=== PATIENT | female | born 1950 | race Caucasian/White ===

== ENCOUNTER 2024-03-20 16:21 | Outpatient (REF) | payer MEDICARE, SELFPAY ==
[2024-03-20 21:15] LABS: Abs Immature Grans 0.02 10^3/uL (0.0-0.06); Absolute Basophil Count 0.04 10^3/uL (0.0-0.2); Absolute Eosinophil Count 0.09 10^3/uL (0.0-0.7); Absolute Lymphocyte Count 1.68 10^3/uL (1.2-3.4); Absolute Monocyte Count 0.47 10^3/uL (0.1-0.8); Absolute Neutrophil Count 4.48 10^3/uL (1.2-6.7); Basophils % 0.6 %; Eosinophils % 1.3 %; HCT 44.3 % (36.0-46.0); HGB 14.8 g/dL (11.2-15.7); Immature Grans % 0.3 %; Lymphocytes % 24.8 %; MCHC 33.4 % (32.0-36.0); MCV 90 fL (80-95); MPV 9.5 fL (8.0-11.0); Monocytes % 6.9 %; Neutrophils % 66.1 %; Platelet Count 319 10^3/uL (130-400); RBC 4.93 10^6/uL (3.93-5.22); RDW 12.6 % (11.7-14.6); RDW-SD 41.3 fL; WBC 6.78 10^3/uL (4.4-10.8)
[2024-03-20 21:43] LABS: ALT 21 U/L (14-59); AST 17 U/L (15-37); Albumin 3.7 g/dL (3.4-5.0); Alkaline Phosphatase 95 U/L (46-116); Anion Gap 6.5 mmol/L (3-11); BUN 13 mg/dL (7-18); Bilirubin, Total 0.58 mg/dL (0.2-1.0); CO2 31.5 mmol/L (21.0-32.0); CREATININE 0.8 mg/dL (0.55-1.02); Calcium 9.1 mg/dL (8.5-10.1); Chloride 107 mmol/L (98-107); Estimated GFR 78.72 (mL/min/1.73m2); Glucose 95 mg/dL (74-106); Potassium 4.3 mmol/L (3.5-5.1); Sodium 145 mmol/L (136-145); Total Protein 7.2 g/dL (6.4-8.2)
[2024-03-23 14:54] LABS: ANA Interpretation Negative (Negative)
== END 2024-03-20 16:22 | disposition home or self-care (01) ==
LOC: LBN 16:21
PROVIDERS: Visit Provider Physician Assistant Medical
DX: L85.3 Xerosis cutis (principal)
CPT/HCPCS: 80053; 85025; 86038

== ENCOUNTER 2024-04-15 15:18 | Outpatient (REF) | payer MEDICARE, SELFPAY ==
[2024-04-16 20:01] LABS: HBs Antibody, Quant <3.1 mIU/mL (See Note); Hepatitis B Surface Ab Negative (See Note)
[2024-04-16 20:08] LABS: Hepatitis B Surface Ag Negative (Negative)
[2024-04-16 20:43] LABS: Hep B Core Antibody Negative (Negative)
[2024-04-16 20:54] LABS: Hepatitis C Ab w Rflx HCV PCR Negative (Negative)
[2024-04-17 21:00] LABS: HBc IgM Ab, S Negative (Negative)
== END 2024-04-15 15:19 | disposition home or self-care (01) ==
LOC: LBN 15:18
PROVIDERS: Visit Provider Student in an Organized Health Care Education/Training Program
DX: L30.9 Dermatitis, unspecified (principal)
CPT/HCPCS: 86704; 86706; 86803; 87340; 86705

== ENCOUNTER 2025-01-28 13:37 | Outpatient (REF) | payer MEDICARE, SELFPAY ==
[2025-01-28 20:40] LABS: Abs Immature Grans 0.04 10^3/uL (0.0-0.06); HCT 44.9 % (36.0-46.0); HGB 15.4 g/dL (11.2-15.7); Immature Grans % 0.5 %; MCH 30.4 pg (27.0-33.0); MCHC 34.3 % (32.0-36.0); MCV 89 fL (80-95); MPV 10.0 fL (8.0-11.0); Platelet Count 313 10^3/uL (130-400); RBC 5.07 10^6/uL (3.93-5.22); RDW 12.8 % (11.7-14.6); RDW-SD 41.4 fL; WBC 8.73 10^3/uL (4.4-10.8)
[2025-01-28 21:04] LABS: ALT 17 U/L (14-59); AST 14 U/L (15-37); Albumin 4.0 g/dL (3.4-5.0); Alkaline Phosphatase 94 U/L (46-116); Anion Gap 9.3 mmol/L (3-11); BUN 10 mg/dL (7-18); Bilirubin, Total 0.8 mg/dL (0.2-1.0); CO2 30.7 mmol/L (21.0-32.0); Calcium 9.0 mg/dL (8.5-10.1); Chloride 103 mmol/L (98-107); Estimated GFR 91.83 (mL/min/1.73m2); Glucose 118 mg/dL (74-106); Potassium 3.7 mmol/L (3.5-5.1); Sodium 143 mmol/L (136-145); Total Protein 6.9 g/dL (6.4-8.2)
== END 2025-01-28 13:38 | disposition home or self-care (01) ==
LOC: NCHCN 13:37
PROVIDERS: Visit Provider Family Medicine
DX: L20.9 Atopic dermatitis, unspecified (principal)
CPT/HCPCS: 80053; 85025

== ENCOUNTER 2025-02-22 16:37 | Outpatient (REF) | payer MEDICARE, SELFPAY ==
[2025-02-22 14:51] LABS: Abs Immature Grans 0.01 10^3/uL (0.0-0.06); HCT 41.3 % (36.0-46.0); HGB 13.7 g/dL (11.2-15.7); Immature Grans % 0.2 %; MCH 29.6 pg (27.0-33.0); MCHC 33.2 % (32.0-36.0); MCV 89 fL (80-95); MPV 10.2 fL (8.0-11.0); Platelet Count 326 10^3/uL (130-400); RBC 4.63 10^6/uL (3.93-5.22); RDW 12.8 % (11.7-14.6); RDW-SD 41.5 fL; WBC 5.66 10^3/uL (4.4-10.8)
[2025-02-22 15:00] LABS: ALT 22 U/L (14-59); Albumin 3.8 g/dL (3.4-5.0); Alkaline Phosphatase 84 U/L (46-116); Anion Gap 9.0 mmol/L (3-11); BUN 7 mg/dL (7-18); Bilirubin, Total 0.9 mg/dL (0.2-1.0); CO2 29.0 mmol/L (21.0-32.0); Calcium 8.7 mg/dL (8.5-10.1); Chloride 104 mmol/L (98-107); Estimated GFR 91.83 (mL/min/1.73m2); Glucose 140 mg/dL (74-106); Potassium 4.0 mmol/L (3.5-5.1); Sodium 142 mmol/L (136-145); Total Protein 6.4 g/dL (6.4-8.2)
[2025-02-22 15:03] LABS: AST < 5 U/L (15-37)
== END 2025-02-22 16:38 | disposition home or self-care (01) ==
LOC: NCHCN 16:37
PROVIDERS: Visit Provider Family Medicine
DX: L20.9 Atopic dermatitis, unspecified (principal)
CPT/HCPCS: 80053; 85025